=== PATIENT | female | born 1975 | race Two or more races ===

== ENCOUNTER 2023-05-18 08:19 | Emergency (ER) | payer OTHER ==
[~2023-05-18] VITALS: Ht 154.9 cm; Wt 95.3 kg
[2023-05-18] MEDS ORDERED: HYDROCODONE/APAP 5/325MG TABLET ONE (08:37)
[2023-05-18] MEDS ORDERED: HYDROCODONE/APAP 5/325MG TABLET PO ONE (09:00)
[2023-05-18] MEDS ORDERED: HYDR-4303 PO (10:10)
[2023-05-18 10:37] VITALS: BP 144/78; TEMP 98; O2SAT 98
== END 2023-05-18 10:32 | disposition home or self-care (01) ==
LOC: ER 08:41
DX: S23.3XXA Sprain of ligaments of thoracic spine, initial encounter (principal); R91.1 Solitary pulmonary nodule; E11.9 Type 2 diabetes mellitus without complications; V98.8XXA Other specified transport accidents, initial encounter; Y93.89 Activity, other specified; Y92.89 Other specified places as the place of occurrence of the external cause; Y99.8 Other external cause status
CPT/HCPCS: 99284; 71250; 74176; L0172

== ENCOUNTER 2024-05-04 18:37 | Emergency (ER) | payer OTHER ==
[~2024-05-04] VITALS: Ht 175.3 cm; Wt 86.2 kg
[~2024-05-04 18:37] MED LIST: HYDR-4303 PO
[2024-05-04 19:19] LABS: BASOPHILS % (AUTO) 0.5 % (0.0-2.0); EOSINOPHILS # (AUTO) 0.2 K/uL (0.0-0.7); EOSINOPHILS % (AUTO) 2.7 % (0.0-6.0); HEMATOCRIT 39 % (33-45); HEMOGLOBIN 13.1 g/dL (11.5-14.8); LYMPHOCYTES # (AUTO) 1.9 K/uL (0.8-4.8); MEAN CORPUSCULAR HEMOGLOBIN 28 PG (26.0-33.0); MEAN CORPUSCULAR HGB CONC 33 g/dl (31.0-36.0); MEAN CORPUSCULAR VOLUME 83 fL (82-100); MONOCYTES # (AUTO) 0.6 K/uL (0.1-1.30); MONOCYTES % (AUTO) 8.1 % (2.0-12.0); NEUTROPHILS # (AUTO) 4.3 K/uL (1.8-8.9); NEUTROPHILS % (AUTO) 61.7 % (43.0-81.0); PLATELET COUNT (AUTO) 224 K/uL (150-450); RED BLOOD CELL COUNT(AUTO) 4.76 MIL/uL (4.0-5.2); RED CELL DISTRIBUTION WIDTH 13.2 % (11.5-15.0); WHITE BLOOD COUNT (AUTO) 6.9 K/uL (4.3-11.0)
[2024-05-04 19:29] LABS: CALCIUM, SERUM 8.6 mg/dL (8.5-10.1); CARBON DIOXIDE 30 mmol/L (21-32); CHLORIDE 110 mmol/L (98-107); CREATININE 0.6 mg/dL (0.6-1.3); GLUCOSE 127 mg/dL (74-106); POTASSIUM 3.6 mmol/L (3.5-5.1); SODIUM SERUM 147 mmol/L (136-145); UREA NITROGEN, BLOOD 11 mg/dL (7-18)
[2024-05-04] MEDS ORDERED: MORPHINE SULFATE INJ 2 MG/ML DISP.SYRIN ONE (19:29)
[2024-05-04] MEDS: MORPHINE SULFATE INJ 2 MG/ML DISP.SYRIN IV ONE (19:32)
[2024-05-04 19:34] LABS: INR 0.97 (0.91-1.10); PARTIAL THROMBOPLASTIN TIME 26.7 SEC (24.3-34.3); PROTHROMBIN TIME 10.3 SECS (9.2-11.1)
[2024-05-04 19:42] LABS: ALANINE AMINOTRANSFERASE 56 U/L (12-78); ALBUMIN 3.7 g/dL (3.4-5.0); ALKALINE PHOSPHATASE 83 U/L (46-116); ASPARTATE AMINOTRANSFERASE 22 U/L (15-37); BILIRUBIN,DIRECT 0.1 mg/dL (0.0-0.2); BILIRUBIN,TOTAL 0.5 mg/dL (0.2-1.0); NT-PRO BNP 64 pg/mL (0-125); TOTAL PROTEIN, SERUM 6.8 g/dL (6.4-8.2)
[2024-05-04] MEDS ORDERED: IOHEXOL-350 100 ML VIAL IV ONE (19:49)
[2024-05-04] MEDS ORDERED: IV NS 0.9% 250 ML IV ONE (19:49)
[2024-05-04 20:39] VITALS: TEMP 98.3
[2024-05-04] MEDS ORDERED: ACETAMINOPHEN ES 500 MG TABLET ONE (20:40)
[2024-05-04 21:00] VITALS: BP 161/107; O2SAT 97
[2024-05-04] MEDS: ACETAMINOPHEN ES 500 MG TABLET PO ONE (21:00)
== END 2024-05-04 21:04 | disposition home or self-care (01) ==
LOC: ER 18:43
DX: R07.2 Precordial pain (principal); R94.31 Abnormal electrocardiogram [ECG] [EKG]; E11.9 Type 2 diabetes mellitus without complications; I10 Essential (primary) hypertension; R10.2 Pelvic and perineal pain
CPT/HCPCS: 99285; 71275; 71045; 93005; 85025; 80048; 80076; 36415; 84484; 85730; 86850; 83880; 84702; J7050; Q9967; J2270